=== PATIENT | female | born 1955 | race Caucasian/White ===

== ENCOUNTER 2017-03-15 15:42 | Emergency (ER) | payer OTHER ==
[~2017-03-15] VITALS: Ht 171.4 cm; Wt 57.6 kg
[2017-03-15 16:36] LABS: ABSOLUTE BASOPHIL COUNT 0 /CUMM (0.0-0.2); ABSOLUTE EOSINOPHIL COUNT 0.1 /CUMM (0.0-0.7); ABSOLUTE GRANULOCYTE CT 5.3 /CUMM (1.4-6.5); ABSOLUTE MONOCYTE COUNT 0.6 /CUMM (0.10-0.60); BASOPHIL % 0.4 % (0.0-2.0); EOSINOPHIL % 0.8 % (0-5); GRANULOCYTE % 66.6 % (42.2-75.2); HEMATOCRIT 42.6 % (37-47); MEAN CORPUSCULAR HGB 29.6 PG (27.0-31.0); MEAN CORPUSCULAR HGB CONC 32.4 G/DL (33.0-37.0); MEAN CORPUSCULAR VOLUME 91.3 FL (81.0-99.0); MEAN PLATELET VOLUME 9.1 FL (7.4-10.4); PLATELET COUNT 363 /CUMM (130-400); RBC DISTRIBUTION WIDTH 13.5 % (11.5-14.5); RED BLOOD CELL CT 4.66 /CUMM (4.20-5.40); WHITE BLOOD CELL COUNT 7.9 /CUMM (4.8-10.8)
--- NOTE | 2017-03-15 18:55 | ED GI/GU/ABDOMINAL COMPLAINT ---
History of Present Illness General Chief Complaint: Abdominal Pain/Flank Pain Stated Complaint: SENT IN BY WALK IN FOR LLQ PAIN AND RECTAL BLEED Source: patient Exam Limitations: no limitations Vital Signs & Intake/Output Vital Signs & Intake/Output Vital Signs Date Time Temp Pulse Resp B/P B/P Pulse O2 O2 Flow FiO2 Mean Ox Delivery Rate 03/155 98.4 78 16 119/78 98 03/15 1845 98.1 71 18 121/81 96 Room Air 03/15 1551 97.1 77 16 124/81 97 Room Air Allergies Coded Allergies: MDX - Phenazopyridine (From PYRIDIUM) (Intermediate, RASH 01/11/12) Reconcile Medications Ciprofloxacin HCl (Cipro) 500 MG TABLET 1 TAB PO BID DIVERTIUCLITIS Metronidazole (Flagyl) 500 MG TABLET 1 TAB PO TID DIVERTICULITIS Triage Note: PT STATES THAT SHE HAS HISTORY OF DIVERTICULOSIS AND SHE HAS BEEN HAVING L SIDE ABD PAIN SINCE TUESDAY, NAUSEA, STATES THAT THIS AM SHE STARTED WITH BLOOD IN HER STOOL . Triage Nurses Notes Reviewed? yes ? N Is pt currently ? No Onset: Abrupt Duration: day(s): (5), intermittent Timing: recent history Quality/Severity: moderate, sharpness Location: left lower quadrant Radiation: back Activities at Onset: none No Modifying Factors: none HPI: 7-year-old female comes into the emergency room complains of left lower abdominal pain has been going on since Tuesday of last week. Patient reports it started with sharp pains in the left side. She reports that Tuesday and the symptoms progressed across her abdomen. She had some associated chills and flulike symptoms. Symptoms improved on Tuesday mildly. She was passing more gas. She denies any vomiting. 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 Nothing seems to make the symptoms better. Comes in for further evaluation. Past History Travel History Traveled to [place] past 21 day No Medical History Any Pertinent Medical History? 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 No Review of Systems Review of Systems Constitutional: Reports: no symptoms. EENTM: Reports: no symptoms. Respiratory: Reports: no symptoms. Cardiovascular: Reports: no symptoms. GI: Reports: see HPI. Genitourinary: Reports: no symptoms. Musculoskeletal: Reports: no symptoms. Skin: Reports: no symptoms. Neurological/Psychological: Reports: no symptoms. Hematologic/Endocrine: Reports: no symptoms. Immunologic/Allergic: Reports: no symptoms. All Other Systems: Reviewed and Negative Physical Exam Physical Exam General Appearance: well developed/nourished, alert, awake Head: atraumatic, normal appearance Eyes: Bilateral: normal appearance. Ears, Nose, Throat, Mouth: hearing grossly normal, moist mucous membrane Neck: normal inspection Respiratory: normal breath sounds, no respiratory distress Cardiovascular: regular rate/rhythm Gastrointestinal: soft, tenderness (LLQ) Back: normal inspection Extremities: normal range of motion Neurologic/Psych: awake, alert, oriented x 3, normal gait, normal mood/affect Skin: intact, normal color Core Measures ACS in differential dx? No Sepsis Present: No Sepsis Focused Exam Completed? No Progress Differential Diagnosis: bowel obstruction, diverticulitis, hernia, ischemic bowel, perforated viscous, SBO, UTI/pyelo Plan of Care: Orders Procedure Date/time Status LACTIC ACID 03/15 1854 Active URINALYSIS 03/15 1554 Complete LACTIC ACID 03/15 1554 Complete COMPREHENSIVE METABOLIC PANEL 03/15 1554 Complete CBC WITHOUT DIFFERENTIAL 03/15 1554 Complete Laboratory Tests 03/15/17 1902: Urine Color YEL, Urine Clarity CLEAR, Urine pH 6.0, Ur Specific [place] >= 1.030 , Urine Protein NEG, Urine Ketones NEG, Urine Nitrite NEG, Urine Bilirubin NEG, Urine Urobilinogen 0.2, Ur Leukocyte Esterase NEG, Ur Microscopic SEDIMENT EXAMINED, Urine RBC 3-5, Ur Epithelial Cells FEW, Urine Hemoglobin SMALL H, Urine Glucose NEG 03/15/17 1600: Anion Gap 14, Estimated GFR > 60, BUN/Creatinine Ratio 31.7 H, Glucose 90, Lactic Acid 0.7, Calcium 10.1, Total Bilirubin 0.5, AST 22, ALT 26, Alkaline Phosphatase 65, Total Protein 7.0, Albumin 4.4, Globulin 2.6, Albumin/Globulin Ratio 1.7, CBC w Diff NO MAN DIFF REQ, RBC 4.66, MCV 91.3, MCH 29.6, MCHC 32.4 L, RDW 13.5, MPV 9.1, Gran % 66.6, Lymphocytes % 25.2, Monocytes % 7.0, Eosinophils % 0.8, Basophils % 0.4, Absolute Granulocytes 5.3, Absolute Lymphocytes 2.0, Absolute Monocytes 0.6, Absolute Eosinophils 0.1, Absolute Basophils 0 Diagnostic Imaging: Viewed by Me: CT Scan. Discussed w/RAD: CT Scan. Radiology Impression: PATIENT: MARIO NI PRESENT AGE: 61 PATIENT ACCOUNT NO: [id number] : 56 LOCATION: [facility] ORDERING PHYSICIAN: Med LARSEN SERVICE DATE: 03/15/17 EXAM TYPE : CAT - CT ABD & PELVIS W IV CONTRAST EXAMINATION: CT ABDOMEN AND PELVIS WITH CONTRAST CLINICAL INFORMATION: Left lower quadrant abdominal pain. Evaluate for diverticulitis. COMPARISON: CT scan of the abdomen and pelvis 04/09/2016. TECHNIQUE: Multidetector volumetric imaging was performed of the abdomen and pelvis following IV administration of 95 mL of Optiray 320 intravenous contrast. Sagittal and coronal reformatted images were obtained on the technologist's workstation. DLP: 264.2 mGy-cm FINDINGS: LUNG BASES: Lung bases are clear. There is no pleural or pericardial effusion. LIVER, GALLBLADDER, AND BILIARY TREE: Liver attenuation is homogeneous. There is no discrete hepatic parenchymal mass. Grossly no intrahepatic or extrahepatic biliary ductal dilatation. The gallbladder is unremarkable with no evidence of radiopaque gallstones, gallbladder wall thickening, or obvious pericholecystic inflammatory changes. PANCREAS: Unremarkable. SPLEEN: Unremarkable. ADRENAL GLANDS: Unremarkable. KIDNEYS AND URETERS: Kidneys demonstrate symmetric corticomedullary enhancement. No worrisome perinephric inflammation or collection. No discrete renal parenchymal mass. No hydronephrosis. No abnormal mass or calcifications visualized along the expected course of the right or left ureters. BLADDER: Unremarkable. GASTROINTESTINAL TRACT: There is abnormal inflammatory stranding within the retroperitoneal fat it extends along a short segment of thickened descending colon for instance best illustrated on axial image 374 of 728 series 3. This finding is consistent with acute diverticulitis. The stomach and small bowel are normal. There is no free intraperitoneal air or fluid. ABDOMINAL WALL: There is a small fat-containing umbilical hernia. The abdominal wall is otherwise intact. LYMPH NODES: No pathologically enlarged mesenteric or retroperitoneal lymph nodes. VASCULAR: There are dilated and somewhat tortuous bilateral ovarian veins. The abdominal aorta and inferior vena cava are unremarkable. PELVIC VISCERA: There is an anteverted uterus. No worrisome adnexal mass. OSSEOUS STRUCTURES: There is no acute osseous finding. No worrisome lytic or blastic osseous lesion. Advanced degenerative spondylosis at L5-S1. IMPRESSION: There are findings consistent with acute diverticulitis involving a short segment of the descending colon. Numerous diverticula are visualized throughout the sigmoid colon. No free intraperitoneal air or fluid. Of note there are dilated and tortuous bilateral ovarian veins. These findings can be seen in the clinical setting of pelvic venous congestion syndrome therefore correlation with clinical examination is recommended with regard to this finding. DICTATED BY: Saman Perdomo MD DATE/TIME DICTATED:03/15/172015 INSTALLMENT ACCOUNT CHECKER:TONG DATE/TIME TRANSCRIBED:03/15/172015 CONFIDENTIAL, DO NOT COPY WITHOUT APPROPRIATE AUTHORIZATION. <Electronically signed in Other Vendor System> SIGNED BY: Saman Perdomo MD 03/15/172032 Initial ED EKG: none Departure Departure Disposition: HOME OR SELF CARE Condition: Stable Clinical Impression Primary Impression: Diverticulitis Referrals: Merlyn Garsia APRN (PCP/Family) Additional Instructions: Take ciprofloxacin and Flagyl as prescribed. Follow-up with your field investigator. Return if any fever or increased pain or any other concerns. High fiber diet after course of antibiotics. Please go over all results of today's visit with your primary care doctor. Contact your primary care doctor to let them know you were here in the emergency room. There may be nonspecific findings which may not be related to your visit today here in the emergency room but may require further evaluation and chronic monitoring by your primary care doctor. If you had a laceration today the chance of foreign body always remains. You should follow-up with your primary care doctor for recheck in 3-5 days for a wound check. If you had an x-ray done there is a chance that a fracture could have been missed on initial read and you should follow-up with your primary care doctor for repeat x-rays if symptoms persist. If your blood pressure was elevated here in the emergency room please have rechecked by kimi primary care doctor within the next 48. If you were prescribed a narcotic here in the emergency room or any type of controlled substances you're not allowed to drive while taking this medication or operate any type of heavy machinery. Narcotics can make you feel lightheaded dizziness nausea and can cause constipation. You may need to pick up man a stool softener. Thank you for choosing [facility] emergency room. Please return to the emergency room immediately if you have any other concerns worsening of symptoms. Departure Forms: Customer Survey General Discharge Information Prescriptions: Current Visit Scripts Ciprofloxacin HCl (Cipro) 1 TAB PO BID #20 TAB Metronidazole (Flagyl) 1 TAB PO TID #30 TAB Comments 03/15/2017 9:33:59 PM No evidence of perforation or abscess. Rest. Drink plenty of fluids. Take antibiotics as prescribed. Follow-up with your field investigator. Return if any other concerns.
--- NOTE | 2017-03-15 20:33 | CT SCAN REPORT ---
EXAMINATION: CT ABDOMEN AND PELVIS WITH CONTRAST CLINICAL INFORMATION: Left lower quadrant abdominal pain. Evaluate for diverticulitis. COMPARISON: CT scan of the abdomen and pelvis 04/09/2016. TECHNIQUE: Multidetector volumetric imaging was performed of the abdomen and pelvis following IV administration of 95 mL of Optiray 320 intravenous contrast. Sagittal and coronal reformatted images were obtained on the technologist's workstation. DLP: 264.2 mGy-cm FINDINGS: LUNG BASES: Lung bases are clear. There is no pleural or pericardial effusion. LIVER, GALLBLADDER, AND BILIARY TREE: Liver attenuation is homogeneous. There is no discrete hepatic parenchymal mass. Grossly no intrahepatic or extrahepatic biliary ductal dilatation. The gallbladder is unremarkable with no evidence of radiopaque gallstones, gallbladder wall thickening, or obvious pericholecystic inflammatory changes. PANCREAS: Unremarkable. SPLEEN: Unremarkable. ADRENAL GLANDS: Unremarkable. KIDNEYS AND URETERS: Kidneys demonstrate symmetric corticomedullary enhancement. No worrisome perinephric inflammation or collection. No discrete renal parenchymal mass. No hydronephrosis. No abnormal mass or calcifications visualized along the expected course of the right or left ureters. BLADDER: Unremarkable. GASTROINTESTINAL TRACT: There is abnormal inflammatory stranding within the retroperitoneal fat it extends along a short segment of thickened descending colon for instance best illustrated on axial image 374 of 728 series 3. This finding is consistent with acute diverticulitis. The stomach and small bowel are normal. There is no free intraperitoneal air or fluid. ABDOMINAL WALL: There is a small fat-containing umbilical hernia. The abdominal wall is otherwise intact. LYMPH NODES: No pathologically enlarged mesenteric or retroperitoneal lymph nodes. VASCULAR: There are dilated and somewhat tortuous bilateral ovarian veins. The abdominal aorta and inferior vena cava are unremarkable. PELVIC VISCERA: There is an anteverted uterus. No worrisome adnexal mass. OSSEOUS STRUCTURES: There is no acute osseous finding. No worrisome lytic or blastic osseous lesion. Advanced degenerative spondylosis at L5-S1. IMPRESSION: There are findings consistent with acute diverticulitis involving a short segment of the descending colon. Numerous diverticula are visualized throughout the sigmoid colon. No free intraperitoneal air or fluid. Of note there are dilated and tortuous bilateral ovarian veins. These findings can be seen in the clinical setting of pelvic venous congestion syndrome therefore correlation with clinical examination is recommended with regard to this finding.
[2017-03-15] MEDS ORDERED: FLAGYL500 MG PO (20:57)
[2017-03-15] MEDS ORDERED: CIPRO500 M1 PO (20:57)
[2017-03-15 21:25] VITALS: BP 119/78
== END 2017-03-15 21:31 ==
LOC: ERH 15:42
PROVIDERS: Emergency Medicine
DX: K57.92 Diverticulitis of intestine, part unspecified, without perforation or abscess without bleeding (principal)
CPT/HCPCS: 74177; 81001